=== PATIENT | female | born 1935 | race Caucasian/White ===

== ENCOUNTER 2021-06-08 14:24 | Inpatient (IN) | payer OTHER ==
[~2021-06-08] VITALS: Ht 165.1 cm; Wt 56.7 kg
[~2021-06-08 14:24] MED LIST: COLACE100 MG PO; ENOXAPARIN30 MG/0.1 SUBQ; ESTRADIOL 1 MG T1 M1 PO; FLONASE 0.05%50 MCG NASAL; IBUPROFEN 200200 M1 PO; NORCO 5-325 TA1 EACH PO; TRAMADOL 50 MG50 MG PO; ULTRAM 50MG TAB50 MG PO; XARELTO10 M1 PO
[2021-06-08 14:28] VITALS: BP 172/78
[2021-06-08] MEDS ORDERED: NEURONTIN 300M300 M2 PO (14:36)
[2021-06-08] MEDS ORDERED: METFORMIN HCL500 MG PO (14:37)
[2021-06-08] MEDS ORDERED: BACLOFEN 10MG T10 MG PO (14:37)
[2021-06-08 17:57] LABS: ABSOLUTE NEUTROPHILS 8.8 thou/uL (1.4-8.2); BASOPHILS 0.4 % (0.0-2.0); EOSINOPHILS 2.6 % (0.0-3.0); HEMATOCRIT 38.4 % (37.0-47.0); HEMOGLOBIN 13.3 gm/dL (12.0-15.0); LYMPHOCYTES 8.8 % (24.0-44.0); MCH 30.7 pg (26.0-34.0); MCHC 34.6 g/dL (28.0-37.0); MCV 88.8 fL (80.0-100.0); MONOCYTES 6.5 % (1.0-8.0); PLATELET COUNT 344 thou/uL (150-400); POLYS 81.7 % (36.0-66.0); RBC 4.32 mil/uL (4.20-5.00); RDW 12.5 % (10.5-14.5); WBC 10.7 thou/uL (4.0-11.0)
[2021-06-08 18:50] LABS: CALCIUM 8.8 mg/dL (8.5-10.1); CREATININE 0.6 mg/dL (0.6-1.0); POTASSIUM 4.1 mmol/L (3.5-5.1)
[2021-06-08 18:56] LABS: TOTAL BILIRUBIN 0.4 mg/dL (0.2-1.0); TOTAL PROTEIN 7.4 g/dL (6.4-8.2)
--- NOTE | 2021-06-08 19:09 | NUR ---
REPORT GIVEN TO TERE SINGH AT THIS TIME
[2021-06-08 19:23] VITALS: BP 151/51
[2021-06-08 20:30] VITALS: BP 144/57
--- NOTE | 2021-06-09 01:50 | NUR ---
PT ARRIVED FROM THE ER @1999 A&OX4. ADMISSION DONE AND PT ORIENTED TO THE UNIT. FOLLEY INTACT. TRAMADOL GIVEN FOR PAIN. BACLOFEN RESTARTED. FOLLEY INTACT FOR IMMOBILIZATION. PT DENIES N/V. NO FURTHER SIGNS OF DISCOMFORT WILL CONT TO MONITOR.
[2021-06-09 04:37] VITALS: BP 144/64
[2021-06-09 08:07] VITALS: BP 131/64
--- NOTE | 2021-06-09 08:31 | EKG ---
[address] [place] [address] ELECTROCARDIOGRAM REPORT Name: JAYRO DERAS Room #: 435-P ADM IN M.R.#: [id number] Admission: 06/08/21 Attend Phys: Lynn Shannon Discharge: Date of : 35 Report #: [id number] [facility] ED Test Date: 2021-06-08 Test Time: 17:28:54 Pat Name: JAYRO DERAS Department: Room: [facility] Gender: F Career Technology Teacher: : 1935 Requested By: Irving Arizmendi Order Number: [id number] MD: Logan De La Garza Measurements Intervals [place] Rate: 80 P: 87 WI: 167 QRS: 68 QRSD: 77 T: 67 QT: 354 QTc: 409 Interpretive Statements Sinus rhythm normal tracing Compared to ECG 10/31/2015 17:22:43 No significant changes Electronically Signed On 06-09-2021 8:31:12 CDT by Logan De La Garza [email or web address] <ELECTRONICALLY SIGNED> By: Logan De La Garza MD, [facility] 06/09/21 0831 1728 1728 Logan De La Garza MD, FACC /EPI
--- NOTE | 2021-06-09 09:21 | NUR ---
Chart review. Jah visited with neo at bedside, intro to cm and dcp. A & o x 3, pleasant, able to make her needs know. She lives at home with daughter and granddaughters. They live in town home with 4 level, lots of stairs inside home to each level. Have 3 canes and use them, still not sure how i fell walking to the car. Manage own medication. Drive vehicle. Independent. [facility] in past when had hips done about 5-6 years ago per neo. No skilled rehab in the past. Agree with [facility] if needed and would like to [facility]. Referral sent to [facility] Will cont following as needed for dc needs.
[2021-06-09 10:16] VITALS: BP 102/54
[2021-06-09 11:38] VITALS: BP 102/54
--- NOTE | 2021-06-09 11:38 | NUR ---
ASSUMED PT CARE THIS AM. PT IS ALERT & ORIENTED X4. PT HAS IV SITE ON RAC. PT WAS WORKING WITH PHYSICAL THERAPY BUT C/O OF ABOUT TO FAINT. CHECKED VS. INFORMED HOSPITALIST. GIVEN BOLUS IV DUE TO LOW BP. PT IS ON ROOM AIR. PT ON THE CHAIR WITH CALL LIGHT WITHIN REACH. PT C/O OF PAIN AND GIVEN PAIN MEDICATION PER PT REQUEST. PT HAS PALUMBO CATH IN PLACE. WILL CONTINUE TO MONITOR PT. FOLLOW POC.
[2021-06-09 16:00] VITALS: BP 135/63
[2021-06-09 19:06] VITALS: BP 122/67
--- NOTE | 2021-06-09 23:29 | NUR ---
ASSESSED AT START OF SHIFT. PT IN CHAIR UP WITH ASSISTX1 TO THE BED. EVENING MEDS AND TRAMADOL GIVEN FOR PAIN. FALL PREC MAINTAINED. PT ON RA. NO FURTHER SIGNS OF DISCOMFORT WILL CONT TO MONITOR.
[2021-06-10 04:53] VITALS: BP 139/57
[2021-06-10 07:16] VITALS: BP 136/59
--- NOTE | 2021-06-10 10:39 | NUR ---
ASSUMED PT CARE THIS AM. PT IS ALERT & ORIENTED X4. PT HAS IV SITE ON RAC SALINE LOCKED. PT USES WALKER TO THE BATHROOM. PT IS ACCUCHECK ACHS. PT IS ON ROOM AIR. GIVEN PAIN MEDICATION PRIOR WORKING WITH PHYSICAL THERAPY THIS AM. WBAT WITH WALKER PER PHYSICAL THERAPY. WILL CONTINUE TO MONITOR PT. FOLLOW POC.
--- NOTE | 2021-06-10 11:44 | NUR ---
Discuss during los with the hospitalist. Dc home today. [facility] set up. No DME needs. Daughter will transport her home.
== END 2021-06-10 12:03 | disposition home health service (06) | DRG 536 ==
LOC: ER 14:24 → EROBS 18:06 → 4S 18:06
PROVIDERS: Physician Assistant; ADMIT Hospitalist; ATTEND Hospitalist
PROC: 0HQ1XZZ Repair Face Skin, External Approach (ICD-10-PCS; principal; 2021-06-08)
DX: S32.592A Other specified fracture of left pubis, initial encounter for closed fracture (principal); K76.89 Other specified diseases of liver; Z20.822 Contact with and (suspected) exposure to COVID-19; M19.90 Unspecified osteoarthritis, unspecified site; M81.0 Age-related osteoporosis without current pathological fracture; S01.81XA Laceration without foreign body of other part of head, initial encounter; I99.8 Other disorder of circulatory system; R53.81 Other malaise; I67.2 Cerebral atherosclerosis; E11.9 Type 2 diabetes mellitus without complications; Z90.710 Acquired absence of both cervix and uterus; Z90.49 Acquired absence of other specified parts of digestive tract; Z88.6 Allergy status to analgesic agent; Z88.8 Allergy status to other drugs, medicaments and biological substances; W18.39XA Other fall on same level, initial encounter; Y93.89 Activity, other specified; Y92.098 Other place in other non-institutional residence as the place of occurrence of the external cause; Y99.8 Other external cause status; Z23 Encounter for immunization
CPT/HCPCS: 10195